=== PATIENT | female | born 1935 | race Native Hawaiian/Other Pacific Islander ===

== ENCOUNTER 2016-06-03 08:41 | Outpatient (CLI) | payer OTHER ==
[2016-06-03 09:17] LABS: PLATELET COUNT 216 K/uL (152-353)
[2016-06-03 11:09] LABS: POTASSIUM 4.4 mmol/L (3.6-5.2)
== END 2016-06-03 19:51 | disposition home or self-care (01) ==
LOC: LABW 08:41
PROVIDERS: Internal Medicine Hematology & Oncology
DX: E55.9 Vitamin D deficiency, unspecified (principal); D50.8 Other iron deficiency anemias
CPT/HCPCS: 36415; 80053; 82306; 85027

== ENCOUNTER 2016-11-27 08:52 | Outpatient (CLI) | payer OTHER ==
[2016-11-27 09:28] LABS: PLATELET COUNT 233 K/uL (152-353)
== END 2016-11-27 09:55 | disposition home or self-care (01) ==
LOC: LABW 08:52
PROVIDERS: Internal Medicine Hematology & Oncology
DX: C50.412 Malignant neoplasm of upper-outer quadrant of left female breast (principal); E55.9 Vitamin D deficiency, unspecified
CPT/HCPCS: 36415; 80053; 82306; 85027

== ENCOUNTER 2017-06-30 08:45 | Outpatient (CLI) | payer OTHER ==
[2017-06-30 09:23] LABS: PLATELET COUNT 258 K/uL (152-353)
[2017-06-30 09:44] LABS: POTASSIUM 3.9 mmol/L (3.6-5.2)
== END 2017-06-30 20:03 | disposition home or self-care (01) ==
LOC: LABW 08:45
PROVIDERS: Internal Medicine Hematology & Oncology
DX: C50.412 Malignant neoplasm of upper-outer quadrant of left female breast (principal)
CPT/HCPCS: 36415; 80053; 82306; 82728; 83540; 83550; 85027

== ENCOUNTER 2018-02-11 11:16 | Emergency (ER) | payer OTHER ==
[~2018-02-11] VITALS: Ht 157.5 cm; Wt 51.7 kg
[2018-02-11 11:25] VITALS: TEMP 97.3
[2018-02-11 13:19] VITALS: BP 152/60
== END 2018-02-11 13:19 | disposition home or self-care (01) ==
LOC: ED 11:16
DX: S82.65XA Nondisplaced fracture of lateral malleolus of left fibula, initial encounter for closed fracture (principal); S92.355A Nondisplaced fracture of fifth metatarsal bone, left foot, initial encounter for closed fracture; W18.39XA Other fall on same level, initial encounter; Y92.89 Other specified places as the place of occurrence of the external cause
CPT/HCPCS: 99283; L4350

== ENCOUNTER 2021-06-18 10:11 | Emergency (ER) | payer OTHER ==
[~2021-06-18] VITALS: Ht 157.5 cm; Wt 49.9 kg
[2021-06-18 10:14] VITALS: TEMP 98.7
[2021-06-18 10:37] LABS: PLATELET COUNT 203 K/uL (152-353)
[2021-06-18 11:17] LABS: PARTIAL THROMBOPLASTIN TIME 30.8 SECONDS (24.5-33.6)
[2021-06-18] MEDS ORDERED: FOLIC ACID800 MCG PO (12:04)
[2021-06-18] MEDS ORDERED: SIMV20TA2 PO (12:05)
[2021-06-18] MEDS ORDERED: POLY-IRON150 MG PO (12:05)
[2021-06-18] MEDS ORDERED: AZOR1 TAB PO (12:06)
[2021-06-18] MEDS ORDERED: LEVO0.0529 PO (12:07)
[2021-06-18] MEDS ORDERED: BIOTIN EXTR10000 MCG PO (12:08)
[2021-06-18] MEDS ORDERED: [UNRECOGNIZED DRUG - CODE] PO (12:08)
[2021-06-18] MEDS ORDERED: ZIAC PO (12:08)
[2021-06-18] MEDS ORDERED: CALCIUM CITRATE1 TAB PO (12:09)
[2021-06-18 12:50] VITALS: BP 122/50
== END 2021-06-18 12:50 | disposition short-term general hospital (02) ==
LOC: ED 10:11
PROVIDERS: Hospitalist
DX: S32.511A Fracture of superior rim of right pubis, initial encounter for closed fracture (principal); S32.591A Other specified fracture of right pubis, initial encounter for closed fracture; S32.19XA Other fracture of sacrum, initial encounter for closed fracture; S50.311A Abrasion of right elbow, initial encounter; S50.811A Abrasion of right forearm, initial encounter; W01.0XXA Fall on same level from slipping, tripping and stumbling without subsequent striking against object, initial encounter; Y92.092 Bedroom in other non-institutional residence as the place of occurrence of the external cause; Z11.52 Encounter for screening for COVID-19
CPT/HCPCS: 80048; 80320; 85027; 85610; 85730; 87635; 96360; 96372; 99284; J1885; J2405; U0003